=== PATIENT | male | born 1965 | race Caucasian/White ===

== ENCOUNTER → 2017-11-01 08:02 | Outpatient (CLI) | payer OTHER, SELFPAY ==
[2017-11-01 08:45] LABS: Microscopic, Urine URINE MICROSCOPIC (MICROSCOPIC)
[2017-11-01 09:02] LABS: Appearance,Urine CLEAR (Clear); Bilirubin,Urine Negative (Negative); Blood, Urine Negative (Negative); Color,Urine YELLOW (Yellow); Glucose,Urine (UA) Negative (Negative); Ketones,Urine 1+ (Negative); Leukocyte Esterase,Urine Negative (Negative); Nitrate,Urine Negative (Negative); Protein,Urine Negative (Negative); Specific Gravity, Urine >= 1.030 (1.005-1.030); Urobilinogen,Urine 0.2 EU/dl (0.2)
[2017-11-01 10:55] LABS: Hemoglobin A1C 7.3 % (0.0-7.0)
[2017-11-01 11:08] LABS: Bacteria,Urine Trace /lpf; Squamous Epithelial Cell,Urine Occasional #/hpf (0-5)
[2017-11-01 11:09] LABS: Mucus,Urine 1+ /lpf
[2017-11-01 11:11] LABS: Creatine Kinase 246 U/L (39-308)
== END ==
PROVIDERS: PCP Emergency Medicine; Visit Provider Emergency Medicine
DX: E78.5 Hyperlipidemia, unspecified (principal); E11.9 Type 2 diabetes mellitus without complications; R91.8 Other nonspecific abnormal finding of lung field
CPT/HCPCS: 81001; 82043; 82550; 83036

== ENCOUNTER → 2018-02-21 07:07 | Outpatient (CLI) | payer OTHER, SELFPAY ==
[2018-02-21 07:45] LABS: Microscopic, Urine URINE MICROSCOPIC (MICROSCOPIC)
[2018-02-21 08:11] LABS: Basophils # 0.1 K/mm3 (0-0.2); Basophils % 0.8 % (0.1-2.0); Eosinophils # 0.1 K/mm3 (0.0-0.4); Eosinophils % 2.2 % (0.1-12.0); Hemoglobin 16.1 g/dL (14.1-18.0); Lymphocytes # 2.8 K/mm3 (0.7-4.5); Lymphocytes % 44.9 K/mm3 (10-50); Mean Corpuscular HGB Conc 34.3 g/dL (31.8-35.4); Mean Corpuscular Hemoglobin 30.7 pg (27.0-31.2); Mean Corpuscular Volume 89.6 fl (80-94); Monocytes # 0.4 K/mm3 (0.1-1.0); Monocytes % 5.6 % (1.7-9.3); Neutrophils # 2.9 K/mm3 (1.8-7.8); Neutrophils % 46.5 % (37.0-80.0); Platelet Count 180 K/mm3 (142-424); Red Blood Count 5.24 M/mm3 (4.60-6.20); Red Cell Distribution Width 13.2 % (11.5-17.5); White Blood Count 6.2 K/mm3 (4.8-10.8)
[2018-02-21 08:25] LABS: Alanine Aminotransferase 85 U/L (12-78); Albumin Level 3.9 gm/dL (3.4-5.0); Alkaline Phosphatase 59 U/L (46-116); Anion Gap 13.3 mEq/L (5-15); Appearance,Urine TURBID (Clear); Aspartate Amino Transferase 37 U/L (15-37); Bilirubin,Total 0.6 mg/dL (0.2-1.0); Bilirubin,Urine Negative (Negative); Blood Urea Nitrogen 16 mg/dL (7-18); Blood, Urine Negative (Negative); Calcium 9.7 mg/dL (8.5-10.1); Carbon Dioxide 30 mmol/L (21.0-32.0); Chloride 104 mmol/L (98-107); Chol/HDL Ratio 3.4 (1-3.5); Cholesterol 162 mg/dL (140-200); Color,Urine YELLOW (Yellow); Creatine Kinase 224 U/L (39-308); Creatinine,Serum 0.84 mg/dL (0.70-1.30); Estimated Glomerular Filt Rate 95 ml/min (>60); GFR (African American) 115 ML/MIN (>60); Globulin 3.8 gm/dl (1.3-3.2); Glucose 134 mg/dL (74-106); Glucose,Urine (UA) Negative (Negative); HDL Cholesterol 47 mg/dL (27-67); Ketones,Urine TRACE (Negative); LDL Cholesterol 93 mg/dL (0-130); Leukocyte Esterase,Urine Negative (Negative); Nitrate,Urine Negative (Negative); Potassium 3.3 mmoL/L (3.5-5.1); Protein,Urine Negative (Negative); Sodium 144 mmol/L (136-145); Specific Gravity, Urine >= 1.030 (1.005-1.030); Thyroid Stimulating Hormone 1.47 uIU/ml (0.358-3.740); Total Protein,Serum 7.7 gm/dL (6.4-8.2); Triglycerides 111 mg/dL (30-200); Urobilinogen,Urine 0.2 EU/dl (0.2); VLDL Cholesterol 22 mg/dL (0-40)
[2018-02-21 08:39] LABS: Amorphous Sediment,Urine 4+ /lpf; Bacteria,Urine 3+ /lpf
[2018-02-21 08:42] LABS: Hemoglobin A1C 6.2 % (0.0-7.0)
--- NOTE | 2018-02-21 11:44 | XR_ITS ---
XR chest 2V HISTORY: ITS.REASON: RIGHT LUNG NODULES ORDERING PHYSICIAN: Mason Alexander MD PATIENT AGE: 52 years COMPARISON: 02/29/2012 FINDINGS: The cardiomediastinal silhouette and pulmonary vascularity are within normal limits. The lungs are clear without infiltrates, suspicious nodules, or pleural effusions. There is calcified granuloma in the left upper lobe No acute bony abnormalities. IMPRESSION: No change with no acute finding
[2018-02-22 11:18] LABS: Creatinine, Urine 316.1 mg/dL (Not Estab.); Microalbumin, Urine 16.1 ug/mL (Not Estab.)
[2018-02-24 18:26] LABS: Vitamin B12 461 pg/mL (232-1245)
[2018-02-24 18:27] LABS: Folate >20.0 ng/mL (>3.0)
== END ==
PROVIDERS: PCP Emergency Medicine; Visit Provider Emergency Medicine
DX: E11.9 Type 2 diabetes mellitus without complications (principal); E78.5 Hyperlipidemia, unspecified; M79.1 Myalgia; R91.8 Other nonspecific abnormal finding of lung field
CPT/HCPCS: 71046; 80053; 80061; 81001; 82043; 82550; 82570; 82607; 82746; 83036; 84443; 85025; 87086

== ENCOUNTER → 2018-08-04 13:22 | Outpatient (CLI) | payer BC, OTHER, SELFPAY ==
--- NOTE | 2018-08-04 13:26 | MR_ITS ---
MR knee LT wo con HISTORY: Medial side left knee pain with swelling and instability ITS.REASON: TEAR MEDIAL MENISCUS ORDERING PHYSICIAN: Mason Alexander MD PATIENT AGE: 53 years Comparison: None TECHNIQUE: Standard multiplanar multiecho sequences are performed without contrast. FINDINGS: The cruciate ligaments are intact. The collateral ligaments, patellar tendon, and quadriceps tendon are also intact. No meniscal tear apparent. There is some increased T2 signal involving the patellar cartilage centrally with some minimal irregularity of the patellar cartilage. At this region there is also some associated edema of the posterior patella. There are mild osteoarthritic change patellofemoral joint. There is a small knee joint effusion. Soft tissue edema is present anterior to the patellar tendon. There is a small region of isointense T1 signal and hypointense T2 signal along the superior aspect of the lateral proximal tibia anteriorly and slightly to the left of midline suspicious for loose body. This measures approximately 5 mm. IMPRESSION: 1. No evidence of internal derangement. 2. Chondromalacia patella. 3. Suspect a loose body in the anterior aspect of the knee joint. 4. Mild osteoarthritic changes of the patellofemoral joint. Small knee joint effusion
== END ==
PROVIDERS: PCP Emergency Medicine; Referring Provider Emergency Medicine; Visit Provider Emergency Medicine
DX: S83.242A Other tear of medial meniscus, current injury, left knee, initial encounter (principal)
CPT/HCPCS: 73721

== ENCOUNTER → 2018-08-10 07:50 | Outpatient (CLI) | payer BC, OTHER, SELFPAY ==
[2018-08-10 08:40] LABS: Alanine Aminotransferase 92 U/L (12-78); Albumin Level 4.1 gm/dL (3.4-5.0); Albumin/Globulin Ratio 1.1 (1.1-1.8); Alkaline Phosphatase 52 U/L (46-116); Anion Gap 12.7 mEq/L (5-15); Aspartate Amino Transferase 45 U/L (15-37); Bilirubin,Total 1.3 mg/dL (0.2-1.0); Blood Urea Nitrogen 23 mg/dL (7-18); Calcium 9.9 mg/dL (8.5-10.1); Carbon Dioxide 30 mmol/L (21.0-32.0); Chloride 100 mmol/L (98-107); Creatinine,Serum 1.07 mg/dL (0.70-1.30); Estimated Glomerular Filt Rate 72 ml/min (>60); GFR (African American) 87 ML/MIN (>60); Globulin 3.7 gm/dl (1.3-3.2); Glucose 151 mg/dL (74-106); Potassium 3.7 mmoL/L (3.5-5.1); Sodium 139 mmol/L (136-145); Total Protein,Serum 7.8 gm/dL (6.4-8.2)
[2018-08-10 08:50] LABS: Hemoglobin A1C 6.4 % (0.0-7.0)
== END ==
PROVIDERS: PCP Emergency Medicine; Visit Provider Emergency Medicine
DX: E11.9 Type 2 diabetes mellitus without complications (principal); E78.5 Hyperlipidemia, unspecified; M79.10 Myalgia, unspecified site
CPT/HCPCS: 80053; 83036

== ENCOUNTER → 2019-01-17 13:41 | Outpatient (CLI) | payer BC, OTHER, SELFPAY ==
[2019-01-17 14:05] LABS: Basophils % 0.7 % (0.1-2.0); Eosinophils # 0.2 K/mm3 (0.0-0.4); Hematocrit 44.8 % (42.0-52.0); Hemoglobin 15.5 g/dL (14.1-18.0); Lymphocytes # 2.1 K/mm3 (0.7-4.5); Lymphocytes % 36.2 % (10-50); Mean Corpuscular HGB Conc 34.5 g/dL (31.8-35.4); Mean Corpuscular Hemoglobin 31.4 pg (27.0-31.2); Mean Corpuscular Volume 90.8 fl (80-94); Mean Platelet Volume 8.2 fl (7.4-10.4); Monocytes # 0.4 K/mm3 (0.1-1.0); Monocytes % 6.4 % (1.7-9.3); Neutrophils # 3.1 K/mm3 (1.8-7.8); Neutrophils % 52.7 % (37.0-80.0); Platelet Count 171 K/mm3 (142-424); Red Blood Count 4.93 M/mm3 (4.60-6.20); White Blood Count 5.9 K/mm3 (4.8-10.8)
[2019-01-17 17:44] LABS: Anion Gap 11.4 mEq/L (5-15); Blood Urea Nitrogen 18 mg/dL (7-18); Carbon Dioxide 31 mmol/L (21.0-32.0); Chloride 101 mmol/L (98-107); Creatinine,Serum 0.95 mg/dL (0.70-1.30); Estimated Glomerular Filt Rate 82 ml/min (>60); GFR (African American) 100 ML/MIN (>60); Glucose 158 mg/dL (74-106); Sodium 140 mmol/L (136-145)
[2019-01-17 17:53] LABS: Potassium 3.4 mmoL/L (3.5-5.1)
[2019-01-21 16:35] LABS: Renin Activity, Plasma 0.187 ng/mL/hr (0.167-5.380)
== END ==
PROVIDERS: Visit Provider Emergency Medicine
DX: I10 Essential (primary) hypertension (principal)
CPT/HCPCS: 36415; 80048; 82088; 84244; 85025

== ENCOUNTER → 2019-01-18 08:00 | Outpatient (CLI) | payer BC, OTHER, SELFPAY ==
[2019-01-24 00:25] LABS: Metanephrine, U,24hr 109 ug/24 hr (45-290); Metanephrine, Ur 81 ug/L (Undefined); Normetanephr.,U,24h 161 ug/24 hr (82-500); Normetanephrine, Ur 119 ug/L (Undefined)
[2019-01-25 06:05] LABS: 5-HIAA, Urine 2.7 mg/L (Undefined); Cortisol,F,ug/24hr,U 7 ug/24 hr (5-64); Cortisol,F,ug/L,U 5 ug/L (Undefined)
== END ==
PROVIDERS: Visit Provider Emergency Medicine
DX: I10 Essential (primary) hypertension (principal)
CPT/HCPCS: 82530; 83497; 83835

== ENCOUNTER → 2019-01-23 07:37 | Outpatient (CLI) | payer BC, OTHER, SELFPAY ==
[2019-01-31 10:18] LABS: Epinephrine, U, 24hr 7 ug/24 hr (0-20); Norepinephrine,U,24h 39 ug/24 hr (0-135)
[2019-01-31 20:18] LABS: Dopamine, Ur, 24hr 255 ug/24 hr (0-510); Dopamine, Urine 246 ug/L (Undefined); Epinephrine, Urine 7 ug/L (Undefined); Norepinephrine, Ur 38 ug/L (Undefined)
== END ==
PROVIDERS: Visit Provider Emergency Medicine
DX: I10 Essential (primary) hypertension (principal)
CPT/HCPCS: 82384

== ENCOUNTER 2019-10-12 12:40 | Inpatient (IN) | payer OTHER, BC, SELFPAY ==
[2019-10-12] VITALS (7 sets, daily range): BP systolic 136–184; BP diastolic 81–107; PULSE 77–91; RESP 14–21; TEMP 37.1–38.4; O2SAT 94–96; BMI 30.4; BMI 27.6; BMI 30.7
--- NOTE | 2019-10-12 12:47 | CT_ITS ---
PROCEDURE: CT CHEST WO CON CLINICAL INDICATION: positive covid Cough and congestion, fever, positive for COVID 19 COMPARISON: No exams were available for comparison TECHNIQUE: Axial images obtained with sagittal and coronal reformats. All CT scans at the facility use one or more dose reduction, viz: automated exposure control, ma/kV adjustment per patient size (including targeted exams where dose is matched to indication, i.e. head), or iterative reconstruction technique. FINDINGS: HEART AND MEDIASTINAL STRUCTURES: There is a left paratracheal mass which measures 5.7 x 5.2 x 3.7 cm consistent with thyroid mass/goiter. There are surgical clips from a prior right thyroidectomy. The trachea is deviated toward the right by approximately 1.6 cm. There is a small hiatal hernia LUNGS AND PLEURAL SPACES: There are multiple mostly peripheral ground-glass opacities in the right upper lobe, right lower lobe, lingula, and left lower lobe. There is some minimal subsegmental atelectatic changes in the lingula. No effusions. No cavitation. No bronchiectasis. There is evidence of old granulomatous disease. BONY STRUCTURES: Mild degenerative changes in the spine UPPER ABDOMEN: There is mild fatty liver infiltration. There are post cholecystectomy changes. ADDITIONAL FINDINGS: No other significant abnormalities. IMPRESSION: 1. Multiple mostly peripheral ground-glass opacities/infiltrates bilaterally. These findings are nonspecific but are suspicious for viral/atypical pneumonia/COVID 19. 2. Enlarged left lobe of the thyroid gland consistent with goiter or thyroid mass. Dictated by: Rd Snyder MD 10/12/2019 13:25 Electronically signed by Rd Snyder MD in [place] 10/12/2019 13:25
--- NOTE | 2019-10-12 12:55 | PC.NURSE ---
pt gone to ct
[2019-10-12 13:02] LABS: Basophils # 0.1 K/mm3 (0-0.2); Basophils % 2.4 % (0.1-2.0); Eosinophils % 0.6 % (0.1-12.0); Hematocrit 48.1 % (42.0-52.0); Hemoglobin 16.6 g/dL (14.1-18.0); Lymphocytes # 1.1 K/mm3 (0.7-4.5); Lymphocytes % 28.2 % (10-50); Mean Corpuscular HGB Conc 34.5 g/dL (31.8-35.4); Mean Corpuscular Hemoglobin 30.6 pg (27.0-31.2); Mean Corpuscular Volume 88.7 fl (80-94); Mean Platelet Volume 8.2 fl (7.4-10.4); Monocytes # 0.2 K/mm3 (0.1-1.0); Monocytes % 6.2 % (1.7-9.3); Neutrophils # 2.4 K/mm3 (1.8-7.8); Neutrophils % 62.7 % (37.0-80.0); Platelet Count 144 K/mm3 (142-424); Red Blood Count 5.42 M/mm3 (4.60-6.20); Red Cell Distribution Width 13.6 % (11.5-17.5); White Blood Count 3.8 K/mm3 (4.8-10.8)
[2019-10-12 13:12] LABS: Alanine Aminotransferase 180 U/L (12-78); Albumin Level 4.7 g/dl (3.5-5.0); Albumin/Globulin Ratio 1.6 (1.1-1.8); Alkaline Phosphatase 89 U/L (38-126); Anion Gap 13.4 mEq/L (5-15); Aspartate Amino Transferase 200 U/L (17-59); Bilirubin,Total 0.7 mg/dl (0.2-1.3); Blood Urea Nitrogen 15 mg/dl (9-20); Calcium 9.2 mg/dl (8.4-10.2); Carbon Dioxide 27 mmol/L (22.0-30.0); Chloride 96 mmol/L (98-107); Creatinine Clearance Estimated 142 mL/min (50-200); Estimated Glomerular Filt Rate 100 ml/min (>60); GFR (African American) 121 ML/MIN (>60); Glucose 117 mg/dl (74-100); Lactic Acid 1.2 mmol/L (0.7-2.1); Potassium 3.4 mmoL/L (3.5-5.1); Sodium 133 mmol/L (136-145); Total Protein,Serum 7.7 g/dl (6.3-8.2)
--- NOTE | 2019-10-12 14:09 | PC.NURSE ---
CALLED PHARMACY TO BRING PLAQUENIL
--- NOTE | 2019-10-12 14:42 | HMH.EDSOB ---
ED Disposition Clinical Impression: Weakness, Malaise and fatigue, COVID-19 virus detected, SARS virus pneumonia, Hypertension, Smell and taste disorder Disposition: Admitted as Observation Condition on Discharge: Good - Critical Care Critical Care Time: No Attestation: On 10/12/19, the high probability of a clinically significant, sudden or life threatening deterioration of the following system(s) required my full and direct attention, intervention and personal management. The time I documented below is in addition to time spent performing reported procedures but includes the following listed in this critical care notation. Medical Decision Making - Medical Records Medical records reviewed: Yes: I reviewed the patient's medical records. - Harry Inquiry Pt receiving controlled substance: No Vital Signs: 10/12/19 12:40 Temperature 100.7 F H Temperature Source Oral Pulse Rate [Radial] 91 H Respiratory Rate 21 Blood Pressure [Right Arm] 140/102 H Blood Pressure Mean [Right Arm] 114 Blood Pressure Source [Right Arm] Automatic Cuff Blood Pressure Position [Right Arm] Sitting 02 Sat by Pulse Oximetry 96 Oxygen Delivery Method Room Air - Lab Data Lab results reviewed: Yes: I reviewed the patient's lab results. Lab Results 10/12/19 12:50: WBC 3.8 L, RBC 5.42, Hgb 16.6, Hct 48.1, MCV 88.7, MCH 30.6, MCHC 34.5, RDW 13.6, Plt Count 144, MPV 8.2, Neut % (Auto) 62.7, Lymph % (Auto) 28.2, [place] % (Auto) 6.2, Eos % (Auto) 0.6, Baso % (Auto) 2.4 H, Neut # (Auto) 2.4, Lymph # (Auto) 1.1, [place] # (Auto) 0.2, Eos # (Auto) 0.0, Baso # (Auto) 0.1 10/12/19 12:50: Sodium 133 L, Potassium 3.4 L, Chloride 96 L, Carbon Dioxide 27, Anion Gap 13.4, BUN 15, Creatinine 0.80, Estimated Creat Clear 142, Estimated GFR 100, Est GFR ( Amer) 121, Glucose 117 H, Calcium 9.2, Total Bilirubin 0.7, AST 200 H, ALT 180 H, Alkaline Phosphatase 89, Total Protein 7.7, Albumin 4.7, Globulin 3.0, Albumin/Globulin Ratio 1.6 10/12/19 12:50: Lactate 1.2 Result diagrams: 10/12/19 12:50 10/12/19 12:50 Orders (Tests/Meds): ED MEDICATIONS Generic Name Dose Route Start Last Admin Trade Name Ankur PRN Reason Stop Dose Admin Azithromycin 500 mg/ Sodium 250 mls @ 250 mls/hr 10/12/19 13:00 10/12/19 13:23 Chloride IV 10/26/19 12:59 250 mls/hr Q24H LEXI Administration Protocol Discontinued Medications Generic Name Dose Route Start Last Admin Trade Name Ankur PRN Reason Stop Dose Admin Acetaminophen 1,000 mg 10/12/19 12:50 10/12/19 12:51 Tylenol 500mg Tablet PO 10/12/19 12:51 1,000 mg ONCE ONE Administration Hydroxychloroquine Sulfate 400 mg 10/12/19 14:15 10/12/19 14:17 Plaquenil 200mg Tablet PO 10/12/19 14:16 400 mg ONCE ONE Administration Hydroxychloroquine Sulfate 400 mg 10/12/19 14:09 10/12/19 14:17 Plaquenil 200mg Tablet PO 10/12/19 14:10 Not Given ONCE ONE Sodium Chloride 1,000 mls @ 999 mls/hr 10/12/19 13:00 10/12/19 12:52 Sod Chlor 0.9% 1000ml Bag IV 10/12/19 14:00 999 mls/hr .Q1H1M LEXI Administration Lorazepam 2 mg 10/12/19 12:52 10/12/19 13:23 Ativan 2mg/Ml Vial IV 10/12/19 12:53 2 mg ONCE ONE Administration Sodium Chloride 10 ml 10/12/19 12:52 10/12/19 13:23 Sodium Chloride 0.9% 10ml Vial IV 11/11/19 12:51 10 ml NEEDED PRN Administration to Dilute Lorazepam inj ORDERS Category Date Time Status Blood Culture Stat Micro 10/12/19 12:50 Received - CT Data CT Scan: Chest Time Received: 14:[address] Reviewed: Yes: I have viewed the radiologist's interpretation Preliminary Findings: Abnormal (Patient has a bilateral groundglass appearance significant for prior viral pneumonia which does represent COVID-19 picture.) Medical Decision Narrative: Spoke to Dr. Landa for admission for this patient. Resp/SOB HPI - General Chief Complaint: Shortness of Breath/Dyspnea Stated Complaint: Shortness of breath Time Seen by Provider
--- NOTE | 2019-10-12 14:59 | PC.NURSE ---
PT SITTING ON SIDE OF BED IN ROOM. STATES THAT HE DOESN'T FEEL MUCH BETTER THAN HE DID ON ARRIVAL, BUT DENIES FEELING ANY WORSE. PT STATES THAT HE IS NOT SOA AND DENIES COUGH. PT C/O FEVER, LACK OF TASTE/SMELL, WEAKNESS, CHILLS, AND BODYACHES.
--- NOTE | 2019-10-12 15:13 | HMH.PHAINT ---
HOME MEDICATION RECONCILIATION COMPLETED USING LIST FROM HOME PHARMACY.
--- NOTE | 2019-10-12 17:19 | HMH.HP ---
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 The patient primarily works at the [employer] in [place], [place] and has been exposed to prisoners with Covid-19 infection. Patient states he had a sore throat and cough about 10 days ago that lasted about 4 days. He was tested for Covid-19 with a nasal swab and found to be positive. He has been isolated at home and had been feeling better until a few days ago when he began to have fever and chills with a return of cough associated with shortness of breath. He lost his sense of smell and taste and felt more weak today, so he came to the ER for further evaluation. In the ER he was noted to be hypoxic into the mid 80's when he would talk. [facility] History Medical History: Reports:: Diabetes Mellitus Type 2, Hyperlipidemia, Hypertension Denies:: Cancer, Internal Pacemaker, MRSA *Have you ever received a pneumonia vaccine?: No *Have you received a flu vaccine this season?: Yes Other Medical History: Reports: Hypothyroidism Other Surgeries: Yes: No Previous Surgery - *Social History Educational Level: Completed College Alcohol Intake: never *Occupational Status:: employed Housing: house Household Members: spouse, children *Travel in the last 8 weeks: None Family Hx:: No significant family history Review of Systems - Constitutional Reports chills, Reports fatigue, Reports fever(s) - Eyes Denies change in vision - ENT Denies bleeding gums - *Cardiovascular Denies chest pain - *Respiratory Denies coughing up blood - *Gastrointestinal Denies abdominal pain - *Genitourinary Denies difficulty urinating - *Musculoskeletal Denies muscle cramps - Integumentary/Breasts Denies rash - *Neurologic Denies dizziness Meds Home Medications Medication Instructions Recorded Confirmed Type Amlodipine Besylate [Amlodipine 5 mg PO DAILY 10/12/19 10/12/19 History 5mg tab] Aspirin [Aspirin 81mg EC Tab] 81 mg PO DAILY 10/12/19 10/12/19 History Atorvastatin Calcium [Atorvastatin 40 mg PO HS 10/12/19 10/12/19 History 40mg Tab] Levothyroxine Sodium 100 mcg PO DAILY 10/12/19 10/12/19 History [Levothyroxine 100mcg (0.1MG) Tab] Metformin HCl [Metformin HCl ER] 1,000 mg PO BID 10/12/19 10/12/19 History RX: Hydralazine HCl 50 mg PO TID 10/12/19 10/12/19 History RX: Lansoprazole 30 mg PO DAILY 10/12/19 10/12/19 History RX: Telmisartan 40 mg PO DAILY 10/12/19 10/12/19 History carvediloL [Carvedilol 25mg Tab] 25 mg PO BID 10/12/19 10/12/19 History Allergies Allergy/AdvReac Type Severity Reaction Status Date / Time No Known Allergies Allergy Unverified 10/12/19 15:03 Exam Vital signs and Labs for Last 24 Hours: Temp Pulse Resp BP Pulse Ox 100.7 F H 82 19 159/85 H 96 10/12/19 15:42 10/12/19 16:01 10/12/19 16:01 10/12/19 16:01 10/12/19 16:47 Laboratory Results - last 24 hr 10/12/19 12:50: WBC 3.8 L, RBC 5.42, Hgb 16.6, Hct 48.1, MCV 88.7, MCH 30.6, MCHC 34.5, RDW 13.6, Plt Count 144, MPV 8.2, Neut % (Auto) 62.7, Lymph % (Auto) 28.2, [place] % (Auto) 6.2, Eos % (Auto) 0.6, Baso % (Auto) 2.4 H, Neut # (Auto) 2.4, Lymph # (Auto) 1.1, [place] # (Auto) 0.2, Eos # (Auto) 0.0, Baso # (Auto) 0.1 10/12/19 12:50: Sodium 133 L, Potassium 3.4 L, Chloride 96 L, Carbon Dioxide 27, Anion Gap 13.4, BUN 15, Creatinine 0.80, Estimated Creat Clear 142, Estimated GFR 100, Est GFR ( Amer) 121, Glucose 117 H, Calcium 9.2, Total Bilirubin 0.7, AST 200 H, ALT 180 H, Alkaline Phosphatase 89, Total Protein 7.7, Albumin 4.7, Globulin 3.0, Albumin/Globulin Ratio 1.6 10/12/19 12:50: Lactate 1.2 I & O for Last 24 hours: Intake & Output 10/09/19 10/10/19 10/11/19 10/12/19 23:59 23:59 23:59 23:59 Weight 252 lb 7 oz - Constitutional no acute distress Comments: Speaks in full sentences,
--- NOTE | 2019-10-12 18:14 | PC.NURSE ---
Pt arrived to the floor via wheel chair accompanied by Gallito Quintero RN. He is alert and oriented and independent with ambulation. Lungs are mostly clear with some faint wheezes noted. O2 has been in 90's on RA. Temp had been 99.6-100.[address] Garcia to clarify admission orders, he wanted patient to have a regular mothers diet for extra nutrition, 300mg irbesartan po now, 2L NC and 1000mg tylenol po q8hrs prn for fever. Order faxed to pharmacy and irbesartan administered. Teds to BLE. Will continue to monitor.
--- NOTE | 2019-10-12 20:07 | PC.NURSE ---
PT MADE HIS WAY TO BATHROOM INDEPENDENTLY AT BEGINNING OF SHIFT. PT DID WELL, BUT BECOMES VERY SOA UPON AMBULATION. PT REQUESTED TO PUT OXYGEN ON WHEN GETTING BACK IN BED. PT ON 2LNC AT THIS TIME. O2 SAT 95%. WILL CONTINUE TO MONITOR.
[2019-10-13 04:00] VITALS: BP 163/97; PULSE 85; RESP 14; TEMP 37.8; O2SAT 91
--- NOTE | 2019-10-13 04:11 | PC.NURSE ---
A&OX4. PT HAS TOLERATED RA MAJORITY OF SHIFT. PT REQUESTED OXYGEN AT BEGINNING OF SHIFT AFTER GETTING SOA WALKING TO BATHROOM AND BACK TO BED. PT O2 SAT GOT DOWN TO 89% ON RA AT THIS TIME. PT PLACED ON 2LNC, O2 SAT QUICKLY SNEHAL TO 95%. PT PLACED BACK ON RA. PT O2 SAT HAS STAYED BETWEEN 90-95% T/O SHIFT. PT STATES THAT SOA HAS GOTTEN BETTER T/O SHIFT. PT HAS BEEN FEBRILE T/O SHIFT, ACTIVE COOLING MEASURES APPLIED AND TYLENOL ADMINISTERED PER AUG. PT ONLY OTHER COMPLAINT IS THAT HE FEELS SORE ALL OVER. PT HAS DRANK WATER T/O SHIFT. PT HAS SLEPT AT INTERVALS, BUT SLEEPS GOOD WHEN HE DOES FALL ASLEEP. PT HAS HAD NO COUGH OR C/O SORE THROAT THIS SHIFT. PT HAS NO OTHER COMPLAINTS THUS FAR, VSS WILL CONTINUE TO MONITOR.
[2019-10-13 05:00] VITALS: BMI 31.8
--- NOTE | 2019-10-13 05:08 | PC.NURSE ---
WEIGHT GAIN NOTED SINCE YESTERDAY AT 1600. WILL NOTIFY ONCOMING NURSE.
[2019-10-13 08:00] VITALS: BP 151/88; PULSE 70; RESP 18; TEMP 37.6; O2SAT 93
--- NOTE | 2019-10-13 09:17 | HMH.ACPN2 ---
Internal Medicine - PN: Subj *Date: 10/13/19 *Time: 09:37 Interval history: Pt with no new complaints today, he feels better today. He did have fever last night. Exam Vital signs and Labs for Last 24 Hours: Temp Pulse Resp BP Pulse Ox 99.7 F H 70 18 151/88 H 93 L 10/13/19 08:00 10/13/19 08:00 10/13/19 08:00 10/13/19 08:00 10/13/19 08:00 Laboratory Results - last 24 hr 10/12/19 12:50: WBC 3.8 L, RBC 5.42, Hgb 16.6, Hct 48.1, MCV 88.7, MCH 30.6, MCHC 34.5, RDW 13.6, Plt Count 144, MPV 8.2, Neut % (Auto) 62.7, Lymph % (Auto) 28.2, [place] % (Auto) 6.2, Eos % (Auto) 0.6, Baso % (Auto) 2.4 H, Neut # (Auto) 2.4, Lymph # (Auto) 1.1, [place] # (Auto) 0.2, Eos # (Auto) 0.0, Baso # (Auto) 0.1 10/12/19 12:50: Sodium 133 L, Potassium 3.4 L, Chloride 96 L, Carbon Dioxide 27, Anion Gap 13.4, BUN 15, Creatinine 0.80, Estimated Creat Clear 142, Estimated GFR 100, Est GFR ( Amer) 121, Glucose 117 H, Calcium 9.2, Total Bilirubin 0.7, AST 200 H, ALT 180 H, Alkaline Phosphatase 89, Total Protein 7.7, Albumin 4.7, Globulin 3.0, Albumin/Globulin Ratio 1.6 10/12/19 12:50: Lactate 1.2 I & O for Last 24 hours: Intake & Output 10/10/19 10/11/19 10/12/19 10/13/19 23:59 23:59 23:59 23:59 Intake Total 240 / 240 1208 / 1208 Balance 240 / 240 1208 / 1208 Weight 252 lb 7 oz 262 lb 1 oz - Constitutional no acute distress - *Routine HEENT Exam Head: Present: normocephalic Eye: Present: EOMI, PERRL ENT: Present: mucous membranes moist - *Routine Neck Exam Present: supple. Absent: lymphadenopathy - *Routine Respiratory Exam Present: CTA bilaterally - *Routine Cardiovascular Exam Present: RRR - *Routine Abdominal Exam Present: soft, normoactive bowel sounds. Absent: tenderness - *Routine Extremities Exam Absent: cyanosis, clubbing, edema - *Routine Skin Exam Present: warm. Absent: rash - *Routine Neurological Exam Present: alert, oriented X3 Assessment and Plan (1) Pneumonia due to COVID-19 virus Current visit: Yes Status: Acute Category: Medical Code(s): U07.1 - COVID-19; J12.89 - Other viral pneumonia (2) Diabetes mellitus type 2 in obese Current visit: Yes Status: Acute Category: Medical Code(s): E11.69 - Type 2 diabetes mellitus with other specified complication; E66.9 - Obesity, unspecified (3) Hypertension Current visit: Yes Status: Acute Category: Medical Code(s): I10 - Essential (primary) hypertension (4) Hypoxia Current visit: Yes Status: Acute Category: Medical Code(s): R09.02 - Hypoxemia - Assessment and plan all Dx Assessment and Plan for all problems:: Patient is improving, wean supplemental oxygen today, saline lock today.
--- NOTE | 2019-10-13 10:44 | HMH.PHAVTE ---
[facility] Pharmacy VTE Monitoring - Patient Demographics Admission date: 10/12/19 Report Date: 10/13/19 Time: 10:44 Allergies/Adverse Reactions: Patient Allergies No Known Allergies Allergy (Unverified 10/12/19 15:03) Height: 1.93 m Weight: 118.87 kg Patient Problems: Current Active Problems Weakness (Acute) Malaise and fatigue (Acute) COVID-19 virus detected (Acute) SARS virus pneumonia (Acute) Hypertension (Acute) Smell and taste disorder (Acute) Pneumonia due to COVID-19 virus (Acute) Diabetes mellitus type 2 in obese (Acute) Hypoxia (Acute) - VTE Risk Labs: VTE Related Lab Results Hgb 16.6 g/dL (14.1-18.0) 10/12/19 12:50 Hct 48.1 % (42.0-52.0) 10/12/19 12:50 Plt Count 144 K/mm3 (142-424) 10/12/19 12:50 BUN 15 mg/dl (9-20) 10/12/19 12:50 Creatinine 0.80 mg/dl (0.66-1.25) 10/12/19 12:50 Estimated Creat Clear 142 mL/min (50-200) 10/12/19 12:50 Was VTE Risk Assessment Performed: Yes VTE Score: 4 VTE Risk Level: Low Risk - Prophylaxis VTE Prophylaxis Ordered?: Yes Types of VTE Prophylaxis: TEDS Knee High Location of Applied Device: Bilateral Lower Extremeties - VTE Diagnosis Confirmed Treatment or plan recommended: Continue Current Treatment
[2019-10-13 12:00] VITALS: BP 144/89; PULSE 79; PULSE 94; RESP 17; TEMP 37.1; O2SAT 94
[2019-10-13 16:00] VITALS: BP 145/95; PULSE 82; RESP 18; TEMP 38.3
--- NOTE | 2019-10-13 18:52 | PC.NURSE ---
ALERT AND ORIENTED X4. MEDICATION ADMINISTERED FOR PAIN AND FEVER PER AUG. LUNGS REMAIN CLEAR, 02 SATURATION MID 90'S RA. PT DENIES SOB. NAUSEA MEDICATION ADMINISTERED AFTER LUNCH. MEDICATION EFFECTIVE. APPETITE IS FAIR. PT AMBULATES INDEPENDENTLY IN ROOM AND TO BATHROOM. PT HAS BEEN ACTIVE IN ROOM, RESTLESS, AND UP AND DOWN MOST OF SHIFT. NO DISTRESS NOTED. SAFETY MEASURES IN PLACE, CALL LIGHT WITHIN REACH, WILL CONTINUE TO MONITOR
[2019-10-13 20:00] VITALS: BP 143/103; PULSE 83; RESP 18; TEMP 37.3; O2SAT 94
[2019-10-13 23:57] VITALS: BP 130/55; PULSE 79; RESP 14; TEMP 37.4; O2SAT 95
[2019-10-14] VITALS (7 sets, daily range): BP systolic 136–163; BP diastolic 89–101; PULSE 76–83; RESP 17–20; TEMP 36.1–37.6; O2SAT 94–95; BMI 30.1; BMI 30.3
--- NOTE | 2019-10-14 04:51 | PC.NURSE ---
A&OX4. PT HAS TOLERATED RA T/O SHIFT, O2 SAT STAYING IN THE MID 90S. PT HAS NO C/O BEING SOA THIS SHIFT. PT HAS NOT HAD A COUGH OR ANY C/O PAIN/NA/VO. PT AMBULATES INDEPENDENTLY IN ROOM. PT HAS SLEPT WELL T/O MAJORITY OF SHIFT. PT HAS REMAINED AFEBRILE, HIGHEST TEMP OF 99.6 THIS SHIFT. PT HAS HAD NO COMPLAINTS, HAS DRANK 2 ENSURES. PT HAD A RESTFUL NIGHT. VSS WILL CONTINUE TO MONITOR.
[2019-10-14 05:19] LABS: Basophils % 0.7 % (0.1-2.0); Eosinophils % 1.3 % (0.1-12.0); Hematocrit 42.7 % (42.0-52.0); Hemoglobin 14.3 g/dL (14.1-18.0); Lymphocytes # 0.9 K/mm3 (0.7-4.5); Lymphocytes % 30.3 % (10-50); Mean Corpuscular HGB Conc 33.5 g/dL (31.8-35.4); Mean Corpuscular Hemoglobin 29.3 pg (27.0-31.2); Mean Corpuscular Volume 87.4 fl (80-94); Mean Platelet Volume 8.5 fl (7.4-10.4); Monocytes # 0.2 K/mm3 (0.1-1.0); Monocytes % 7.5 % (1.7-9.3); Neutrophils # 1.9 K/mm3 (1.8-7.8); Neutrophils % 60.1 % (37.0-80.0); Platelet Count 116 K/mm3 (142-424); Red Blood Count 4.89 M/mm3 (4.60-6.20); Red Cell Distribution Width 13.5 % (11.5-17.5); White Blood Count 3.1 K/mm3 (4.8-10.8)
[2019-10-14 05:29] LABS: Alanine Aminotransferase 88 U/L (12-78); Albumin Level 3.8 g/dl (3.5-5.0); Albumin/Globulin Ratio 1.4 (1.1-1.8); Alkaline Phosphatase 64 U/L (38-126); Aspartate Amino Transferase 56 U/L (17-59); Bilirubin,Total 0.9 mg/dl (0.2-1.3); Blood Urea Nitrogen 9 mg/dl (9-20); Calcium 9.2 mg/dl (8.4-10.2); Carbon Dioxide 30 mmol/L (22.0-30.0); Chloride 96 mmol/L (98-107); Creatinine Clearance Estimated 173 mL/min (50-200); Estimated Glomerular Filt Rate 100 ml/min (>60); GFR (African American) 121 ML/MIN (>60); Globulin 2.8 g/dL (1.3-3.2); Glucose 134 mg/dl (74-100); Sodium 133 mmol/L (136-145); Total Protein,Serum 6.6 g/dl (6.3-8.2)
--- NOTE | 2019-10-14 09:12 | HMH.ACPN2 ---
Internal Medicine - PN: Subj *Date: 10/14/19 *Time: 09:12 Interval history: Patient still feels weak and nauseated. He has less SOB today. Exam Vital signs and Labs for Last 24 Hours: Temp Pulse Resp BP Pulse Ox 99.1 F 77 20 139/89 95 10/14/19 07:27 10/14/19 07:27 10/14/19 07:27 10/14/19 07:27 10/14/19 08:00 Laboratory Results - last 24 hr 10/14/19 04:30: WBC 3.1 L, RBC 4.89, Hgb 14.3, Hct 42.7, MCV 87.4, MCH 29.3, MCHC 33.5, RDW 13.5, Plt Count 116 L, MPV 8.5, Neut % (Auto) 60.1, Lymph % (Auto) 30.3, [place] % (Auto) 7.5, Eos % (Auto) 1.3, Baso % (Auto) 0.7, Neut # (Auto) 1.9, Lymph # (Auto) 0.9, [place] # (Auto) 0.2, Eos # (Auto) 0.0, Baso # (Auto) 0.0 10/14/19 04:30: Sodium 133 L, Potassium 3.0 L, Chloride 96 L, Carbon Dioxide 30, Anion Gap 10.0, BUN 9 D, Creatinine 0.80, Estimated Creat Clear 173, Estimated GFR 100, Est GFR ( Amer) 121, Glucose 134 H, Calcium 9.2, Total Bilirubin 0.9, AST 56 D, ALT 88 H D, Alkaline Phosphatase 64, Total Protein 6.6, Albumin 3.8, Globulin 2.8, Albumin/Globulin Ratio 1.4 I & O for Last 24 hours: Intake & Output 10/11/19 10/12/19 10/13/19 10/14/19 23:59 23:59 23:59 23:59 Intake Total 240 / 240 4018 / 4018 720 / 720 Balance 240 / 240 4018 / 4018 720 / 720 Weight 252 lb 7 oz 262 lb 1 oz 247 lb 5 oz - Constitutional no acute distress (conversant) - *Routine HEENT Exam Head: Present: normocephalic Eye: Present: EOMI ENT: Present: mucous membranes moist - *Routine Neck Exam Present: supple. Absent: lymphadenopathy - *Routine Respiratory Exam Present: CTA bilaterally - *Routine Cardiovascular Exam Present: RRR - *Routine Abdominal Exam Present: soft, normoactive bowel sounds. Absent: tenderness - *Routine Extremities Exam Absent: cyanosis, clubbing, edema - *Routine Skin Exam Present: warm. Absent: rash - *Routine Neurological Exam Present: alert, oriented X3 Assessment and Plan (1) Pneumonia due to COVID-19 virus Current visit: Yes Status: Acute Category: Medical Code(s): U07.1 - COVID-19; J12.89 - Other viral pneumonia (2) Diabetes mellitus type 2 in obese Current visit: Yes Status: Acute Category: Medical Code(s): E11.69 - Type 2 diabetes mellitus with other specified complication; E66.9 - Obesity, unspecified (3) Hypertension Current visit: Yes Status: Acute Category: Medical Code(s): I10 - Essential (primary) hypertension (4) Hypoxia Current visit: Yes Status: Acute Category: Medical Code(s): R09.02 - Hypoxemia (5) Hypokalemia Current visit: Yes Status: Acute Category: Medical Code(s): E87.6 - Hypokalemia (6) Weakness Current visit: Yes Status: Acute Category: Medical Code(s): R53.1 - Weakness (7) Nausea Current visit: No Status: Acute Category: Medical Code(s): R11.0 - Nausea - Assessment and plan all Dx Assessment and Plan for all problems:: Plan to replace potassium today and start Zinc and Vitamin C. LFT's have improved today. Continue symptom management.
--- NOTE | 2019-10-14 16:39 | PC.NURSE ---
ALERT AND ORIENTED X4. PAIN MEDS ADMINISTERED PER AUG. PT AMBULATES INDEPENDENTLY IN ROOM TO BATHROOM. PT REPORTED 2 LOOSE BM THIS SHIFT. LUNGS REMAIN CTA, O2 SATURATION IN MID 90'S ON ROOM AIR. PT DENIES SOB. APPETITE IS FAIR. NO DISTRESS NOTED. VSS. SAFETY MEASURES IN PLACE. PT REMAINS IN NEGATIVE PRESSURE ROOM ON [place]ORNE AND CONTACT PRECAUTIONS WITH EYE PROTECTION. WILL TO CONTINUE TO MONITOR
[2019-10-15] VITALS: BP 150/98; PULSE 78; RESP 20; TEMP 37.3; O2SAT 92
--- NOTE | 2019-10-15 03:08 | PC.NURSE ---
PT. HAS NOT C/O SOA, PAIN, N/V/D THIS SHIFT; PT. REQUESTED ATIVAN FOR SLEEP; EFFECTIVENESS NOTED. O2 SAT MID 90'S WHILE AWAKE AND LOW 90'S WHILE ASLEEP; RA T/O SHIFT. INTERMITTENT NONPRODUCTIVE COUGH NOTED WITH DIMINISHED LUNG SOUNDS T/O.
[2019-10-15 04:00] VITALS: BP 136/88; PULSE 80; RESP 20; TEMP 37.4; O2SAT 92
[2019-10-15 05:00] VITALS: BMI 30.3
[2019-10-15 05:06] LABS: Basophils # 0.1 K/mm3 (0-0.2); Basophils % 1.7 % (0.1-2.0); Eosinophils # 0.1 K/mm3 (0.0-0.4); Eosinophils % 1.2 % (0.1-12.0); Hematocrit 41.7 % (42.0-52.0); Hemoglobin 14.3 g/dL (14.1-18.0); Lymphocytes # 1.1 K/mm3 (0.7-4.5); Lymphocytes % 26.6 % (10-50); Mean Corpuscular HGB Conc 34.4 g/dL (31.8-35.4); Mean Corpuscular Hemoglobin 30.3 pg (27.0-31.2); Mean Corpuscular Volume 88.1 fl (80-94); Mean Platelet Volume 8.4 fl (7.4-10.4); Monocytes # 0.3 K/mm3 (0.1-1.0); Monocytes % 8.3 % (1.7-9.3); Neutrophils # 2.6 K/mm3 (1.8-7.8); Neutrophils % 62.1 % (37.0-80.0); Platelet Count 115 K/mm3 (142-424); Red Blood Count 4.73 M/mm3 (4.60-6.20); Red Cell Distribution Width 13.4 % (11.5-17.5); White Blood Count 4.1 K/mm3 (4.8-10.8)
[2019-10-15 05:09] LABS: Alanine Aminotransferase 73 U/L (12-78); Albumin Level 3.8 g/dl (3.5-5.0); Albumin/Globulin Ratio 1.3 (1.1-1.8); Alkaline Phosphatase 66 U/L (38-126); Anion Gap 9.5 mEq/L (5-15); Aspartate Amino Transferase 49 U/L (17-59); Bilirubin,Total 0.8 mg/dl (0.2-1.3); Blood Urea Nitrogen 10 mg/dl (9-20); Calcium 9.1 mg/dl (8.4-10.2); Carbon Dioxide 29 mmol/L (22.0-30.0); Chloride 98 mmol/L (98-107); Creatinine Clearance Estimated 188 mL/min (50-200); Estimated Glomerular Filt Rate 117 ml/min (>60); GFR (African American) 141 ML/MIN (>60); Globulin 2.9 g/dL (1.3-3.2); Glucose 138 mg/dl (74-100); Potassium 3.5 mmoL/L (3.5-5.1); Sodium 133 mmol/L (136-145); Total Protein,Serum 6.7 g/dl (6.3-8.2)
[2019-10-15 07:33] VITALS: BP 143/87; PULSE 79; RESP 16; TEMP 36.8; O2SAT 94
[2019-10-15 07:34] VITALS: O2SAT 94
--- NOTE | 2019-10-15 09:06 | ECG_ITS ---
APPROVED REPORT Exam: Resting ECG HR:71 bpm ECG Measurements Heart Rate 71 AXES VA 160 P 48 QRSd 146 QRS 69 QT 446 T 22 QTc 484 <Conclusion> Normal sinus rhythm Right bundle branch block Abnormal ECG Electronically signed by : Rey Medina, 10/15/2019 14:03:11
--- NOTE | 2019-10-15 09:06 | HMH.ACPN2 ---
Internal Medicine - PN: Subj *Date: 10/15/19 *Time: 09:06 Interval history: Patient feels much better today, would like to go home. Exam Vital signs and Labs for Last 24 Hours: Temp Pulse Resp BP Pulse Ox 98.3 F 79 16 143/87 H 94 L 10/15/19 07:33 10/15/19 07:33 10/15/19 07:33 10/15/19 07:33 10/15/19 07:34 Laboratory Results - last 24 hr 10/15/19 04:48: WBC 4.1 L D, RBC 4.73, Hgb 14.3, Hct 41.7 L, MCV 88.1, MCH 30.3, MCHC 34.4, RDW 13.4, Plt Count 115 L, MPV 8.4, Neut % (Auto) 62.1, Lymph % (Auto) 26.6, Millard % (Auto) 8.3, Eos % (Auto) 1.2, Baso % (Auto) 1.7, Neut # (Auto) 2.6, Lymph # (Auto) 1.1, Millard # (Auto) 0.3, Eos # (Auto) 0.1, Baso # (Auto) 0.1 10/15/19 04:48: Sodium 133 L, Potassium 3.5, Chloride 98, Carbon Dioxide 29, Anion Gap 9.5, BUN 10, Creatinine 0.70, Estimated Creat Clear 188, Estimated GFR 117, Est GFR ( Amer) 141, Glucose 138 H, Calcium 9.1, Total Bilirubin 0.8, AST 49, ALT 73, Alkaline Phosphatase 66, Total Protein 6.7, Albumin 3.8, Globulin 2.9, Albumin/Globulin Ratio 1.3 I & O for Last 24 hours: Intake & Output 10/12/19 10/13/19 10/14/19 10/15/19 23:59 23:59 23:59 23:59 Intake Total 240 / 240 4018 / 4018 4447 / 4447 1070 / 1070 Balance 240 / 240 4018 / 4018 4447 / 4447 1070 / 1070 Weight 252 lb 7 oz 262 lb 1 oz 249 lb 1.957 oz 249 lb 3 oz Microbiology Reports for the Last 24 Hours: Microbiology 10/12/19 12:50 Blood Blood Culture - Preliminary NO GROWTH AFTER 48 HOURS 10/12/19 12:50 Blood Blood Culture - Preliminary NO GROWTH AFTER 48 HOURS - Constitutional no acute distress - *Routine HEENT Exam Head: Present: normocephalic Eye: Present: EOMI ENT: Present: mucous membranes moist - *Routine Neck Exam Present: supple. Absent: lymphadenopathy - *Routine Respiratory Exam Present: CTA bilaterally - *Routine Cardiovascular Exam Present: RRR - *Routine Abdominal Exam Present: soft, normoactive bowel sounds. Absent: tenderness - *Routine Extremities Exam Absent: cyanosis, clubbing, edema - *Routine Skin Exam Present: warm. Absent: rash - *Routine Neurological Exam Present: alert, oriented X3 Assessment and Plan (1) Pneumonia due to COVID-19 virus Current visit: Yes Status: Acute Category: Medical Code(s): U07.1 - COVID-19; J12.89 - Other viral pneumonia (2) Diabetes mellitus type 2 in obese Current visit: Yes Status: Acute Category: Medical Code(s): E11.69 - Type 2 diabetes mellitus with other specified complication; E66.9 - Obesity, unspecified (3) Hypertension Current visit: Yes Status: Acute Category: Medical Code(s): I10 - Essential (primary) hypertension (4) Hypoxia Current visit: Yes Status: Acute Category: Medical Code(s): R09.02 - Hypoxemia (5) Hypokalemia Current visit: Yes Status: Acute Category: Medical Code(s): E87.6 - Hypokalemia (6) Weakness Current visit: Yes Status: Acute Category: Medical Code(s): R53.1 - Weakness (7) Nausea Current visit: No Status: Acute Category: Medical Code(s): R11.0 - Nausea - Assessment and plan all Dx Assessment and Plan for all problems:: OK for discharge today, will check EKG first. Plan outpatient treatment with Zithromax, Plaquenil, Zinc and Vit C. Spoke to Dr. Davis, patient's primary MD, about treatment plan.
--- NOTE | 2019-10-18 13:14 | HMH.DCSUM ---
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 Davis in [place], [place] for his primary care. The patient primarily works at the [employer] in [place], [place] and has been exposed to prisoners with Covid-19 infection. Patient states he had a sore throat and cough about 10 days ago that lasted about 4 days. He was tested for Covid-19 with a nasal swab and found to be positive. He has been isolated at home and had been feeling better until a few days ago when he began to have fever and chills with a return of cough associated with shortness of breath. He lost his sense of smell and taste and felt more weak today, so he came to the ER for further evaluation. In the ER he was noted to be hypoxic into the mid 80's when he would talk. Hospital Course Hospital Course: The patient was admitted and placed on supplemental oxygen. He was given Zithromax and Plaquenil in the ER and had continued isolation and supportive care. He had a chest CT showing multiple mostly peripheral groundglass opacities bilaterally. He also had an enlarged left lobe of the thyroid gland consistent with a goiter or thyroid mass. The patient did begin feeling slightly better but continued to run a fever. His supplemental oxygen was weaned. He had less shortness of breath. His potassium was low and was replaced. He was also started on zinc and vitamin C. His LFTs were initially elevated but improved. By 10/15/2019, he was feeling much better and wanted to go home. His potassium normalized and his blood cultures showed no growth. He had an EKG before discharge and was sent home on outpatient Zithromax, Plaquenil, zinc, and vitamin C. Dr. Landa did speak with the patient's primary MD about his treatment plan. Objective Vital signs: Temp Pulse Resp BP Pulse Ox 98.3 F 79 16 143/87 H 94 L 10/15/19 07:33 10/15/19 07:33 10/15/19 07:33 10/15/19 07:33 10/15/19 07:34 Narrative: - Constitutional no acute distress Comments: Speaks in full sentences, using supplemental oxygen through a NC - *Routine HEENT Exam Head: Present: normocephalic Eye: Present: EOMI, PERRL ENT: Present: mucous membranes moist - *Routine Neck Exam Present: supple. Absent: lymphadenopathy - *Routine Respiratory Exam Present: CTA bilaterally - *Routine Cardiovascular Exam Present: RRR - *Routine Abdominal Exam Present: soft, normoactive bowel sounds. Absent: tenderness - *Routine Extremities Exam Absent: cyanosis, clubbing, edema - *Routine Skin Exam Present: warm. Absent: rash - *Routine Neurological Exam Present: alert, oriented X3 DS: Diagnosis - Discharge Diagnosis (1) Pneumonia due to COVID-19 virus Status: Acute (2) Diabetes mellitus type 2 in obese Status: Acute (3) Hypertension Status: Acute (4) Hypoxia Status: Acute (5) Hypokalemia Status: Acute (6) Weakness Status: Acute (7) Nausea Status: Acute Discharge Plan - Patient Discharge Instructions ACTIVITY: Continue current activity DIET: continue same diet Additional Instructions: Patient to isolate at home and contact local health department about need for further testing before he can return to work. Patient Instructions: DI for Pneumonia -- Adult, Preventing the Spread of Coronavirus Discharge Instructions - Follow up Plan Follow up with: Luis Carlos Davis MD [Referring] - 2 weeks Disposition: Home, Self-Skilled Nursing Medications: Home Medications Medication Instructions Recorded Confirmed Type Amlodipine Besylate [Amlodipine 5 mg PO DAILY 10/12/19 10/12/19 History 5mg tab] Aspirin [Aspirin 325mg Tab] 325 mg PO DAILY 10/12/19 10/12/19 History Aspirin [Aspirin 81mg EC Tab] 81 mg PO DAILY 10/12/19 10/12/19 History Atorvastatin Calcium [Atorvastatin 40 mg PO HS 10/12/19 10/12/19 History 40mg Tab] Hydralazi
== END 2019-10-15 11:45 | disposition home or self-care (01) | DRG 177 ==
LOC: ER 13:52 → ICU 14:48
PROVIDERS: Admitting Provider Family Medicine; Emergency Provider Family Medicine; PCP Internal Medicine Adolescent Medicine; Visit Provider Family Medicine
DX: U07.1 COVID-19 (principal); J12.89 Other viral pneumonia; E11.9 Type 2 diabetes mellitus without complications; Z79.84 Long term (current) use of oral hypoglycemic drugs; E03.9 Hypothyroidism, unspecified; I10 Essential (primary) hypertension; E78.5 Hyperlipidemia, unspecified; Z79.82 Long term (current) use of aspirin; Z79.899 Other long term (current) drug therapy; R09.02 Hypoxemia
CPT/HCPCS: 71250; 80053; 83605; 85025; 87040; 93005; 96365; 96367; 96375; 99283; J0456; J2405

== ENCOUNTER → 2019-11-27 13:10 | Outpatient (CLI) | payer OTHER, BC, SELFPAY ==
[2019-11-27 17:21] LABS: Coronavirus 19 IgG Antibody Positive (Negative); Coronavirus 19 IgM Antibody Negative (Negative)
== END ==
PROVIDERS: PCP Emergency Medicine; Visit Provider Family Medicine
DX: U07.1 COVID-19 (principal)
CPT/HCPCS: 86328

== ENCOUNTER → 2020-01-25 10:28 | Outpatient (CLI) | payer BC, OTHER, SELFPAY ==
--- NOTE | 2020-01-25 10:32 | CA_ITS ---
APPROVED REPORT EXAM: Comprehensive 2D, Doppler, and color-flow Echocardiogram Movie Projectionist: Gisele Lawrence RDCS Ht: 6 ft 4 in Wt: 245lbs BSA: 2.41 BP: 138/88 mmHg Indications: SOA,HTN,DM,HLP,POST COVID 2D Dimensions LVOT 2.05 cm (M/F) 1.5-2.5 M-Mode Dimensions RVDd 3.82 cm (0.9-2.6) LVDd 5.79 cm (3.5-5.7) LVDs 4.34 cm (3.5-5.7) IVSd 0.93 cm (0.6-1.1) PWd 0.80 cm (0.6-1.1) EF (Teich) 48.80% FS 25.00% EDV (Teich) 165.90 mL ESV (Teich) 84.90 mL LV Diastology E/A Ratio 0.84 Mitral Valve MV A Velocity 66.00 (40-130 cm/s) Left Ventricle Left atrium is mildly enlarged, left ventricle is normal size, mild concentric left ventricular hypertrophy, visually estimated ejection fraction 55% with no regional wall motion abnormality, grade 1 diastolic dysfunction seen without tissue Doppler evidence of raise left atrial pressure. Right Ventricle Right atrium and right ventricular normal size and contractility. Aortic Valve Aortic valve is minimally thickened and fibrosed. There is no aortic stenosis or aortic insufficiency. Mitral Valve Mitral valve grossly normal, there is mild mitral regurgitation. Tricuspid Valve Tricuspid valve is grossly normal, there is mild tricuspid regurgitation, tricuspid regurgitation jet velocity is inadequate for calculation of the right ventricular systolic pressure. Pulmonic Valve Pulmonic valve is poorly visualized. Great Vessels Aortic root is normal size. Pericardium No significant pericardial effusion noted. Conclusion 1. Mildly enlarged left atrium, normal left ventricular size, mild concentric left ventricular hypertrophy, visually estimated ejection fraction 55% with no regional wall motion abnormality, grade 1 diastolic dysfunction seen without tissue Doppler evidence of raise left atrial pressure. 2. Mild mitral and tricuspid regurgitation. 3. No significant pericardial effusion noted. Electronically signed by : Tex Mcdonough, 01/25/2020 14:11:42
== END ==
PROVIDERS: PCP Emergency Medicine; Visit Provider Emergency Medicine
DX: R06.89 Other abnormalities of breathing (principal)
CPT/HCPCS: 93306

== ENCOUNTER → 2020-04-23 09:18 | Outpatient (CLI) | payer BC, OTHER, SELFPAY ==
--- NOTE | 2020-04-23 13:29 | PC.NURSE ---
notified of positive results
== END ==
PROVIDERS: PCP Emergency Medicine; Visit Provider Nurse Practitioner
DX: Z20.828 Contact with and (suspected) exposure to other viral communicable diseases (principal); U07.1 COVID-19
CPT/HCPCS: U0003

== ENCOUNTER → 2021-08-04 09:31 | Outpatient (POV) | payer BC, OTHER, SELFPAY | PROVIDERS: Visit Provider Dermatology | DX: Z00.00 Encounter for general adult medical examination without abnormal findings (principal) ==